=== PATIENT | female | born 1990 | race African-American/Black ===

== ENCOUNTER 2018-05-01 07:59 | Emergency (ER) | payer SELFPAY ==
[~2018-05-01] VITALS: Ht 157.5 cm; Wt 73.0 kg
[2018-05-01 08:10] VITALS: BP 124/81
--- NOTE | 2018-05-01 08:16 | NUR ---
PT AMBULATES TO BED 5
[2018-05-01 08:29] VITALS: BP 124/81
--- NOTE | 2018-05-01 08:29 | NUR ---
PT ELOPPED BEFORE SEEING THE PATIENT BUT DR PETTY TAKING TO THE PT INDIRA.PATIENT ELOPED FROM FACILITY. DISCHARGE INSTRUCTIONS NOT GIVEN TO PATIENT. DR. PETTY NOTIFIED. Addendum: 05/01/18 at 0830 by [email or web address] I WAS IN BED [address] PETTY TAKING TO THE PT. Addendum: 05/01/18 at 0842 by [email or web address] REPORT TO MS MIQUEL MEJIAS NURSE & DR PETTY.
== END 2018-05-01 08:29 | disposition left against medical advice (07) ==
LOC: MED 07:59
DX: R05 Cough (principal)
CPT/HCPCS: 99281